=== PATIENT | female | born 2000 | race Hispanic/Latino ===

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

== ENCOUNTER 2018-01-22 06:40 | Outpatient (CLI) | payer MEDICAID | END 2018-01-22 06:41 | disposition home or self-care (01) | LOC: BICULT 06:40 | PROVIDERS: ATTEND Nurse Practitioner Women's Health | DX: R10.2 Pelvic and perineal pain (principal); R10.30 Lower abdominal pain, unspecified | CPT/HCPCS: 76856 ==

== ENCOUNTER 2018-01-23 16:00 | Emergency (ER) | payer MEDICAID, SELFPAY ==
[2018-01-23 17:02] LABS: #Basophils 0.1 thou/uL (0.0-0.2); #Eosinphils 0.3 thou/uL (0.0-0.7); #Lymphocytes 1.7 thou/uL (1.20-3.40); #Monocytes 0.9 thou/uL (0.11-0.59); #Neutrophils 5.7 thou/uL (1.40-6.50); %Basophils 1.2 % (0.0-1.0); %Eosinophils 3.6 % (0.0-10.0); %Lymphocytes 19.8 % (28.0-48.0); %Monocytes 10.6 % (0.0-4.0); %Neutrophils 64.9 % (31.0-61.0); Hemoglobin 12.8 g/dL (12.0-16.0); Mean Corpuscular HGB CONC 33.8 g/dL (32.0-36.0); Mean Corpuscular Hemoglobin 27.2 pg (25.0-35.0); Mean Corpuscular Volume 80.3 fL (78.0-98.0); Mean Platelet Volume 8.8 fL (7.4-10.4); Platelet Count 263 thou/uL (130-400); White Blood Cell (WBC) Count 8.7 thou/uL (4.8-10.8)
[2018-01-23 17:05] LABS: Bilirubin Negative (Negative); Blood, Urine Small (Negative); Clarity CLOUDY (Clear); Glucose, Urine (Dipstick) Negative (Negative); Leukocyte Small (Negative); Nitrite Negative (Negative); Protein, Urine (Dipstick) Negative (Neg-Trace); Specific Gravity, Urine 1.019 (1.002-1.036); pH, Urine 7.5 (5.0-9.0)
[2018-01-23 17:07] LABS: Bacteria/HPF None Seen HPF (None Seen); Hyaline Casts/LPF 0-3 HYALINE CAST LPF (0-3 Hyaline); Pregnancy Test - Urine (BHCG) Negative (Negative); Pregu Control Background? CLEAR/WHITE (CLR/WHITE); Pregu Control Bar Appear? YES (CONTROL BAR); Specific Gravity 1.019 (1.002-1.036); Squamous Epithelial 0-3 HPF (0-3); WBC/HPF 0-3 HPF (0-3)
[2018-01-23 17:23] LABS: ALT (SGPT) 19 U/L (8-55); AST (SGOT) 18 U/L (5-30); Albumin 3.8 g/dL (3.5-5.0); Alkaline Phosphatase 74 U/L (40-150); Anion Gap 12 mmol/L (10-20); BUN (Urea Nitrogen) 7 mg/dL (8.4-21.0); Bilirubin, Total 0.4 mg/dL (0.2-1.2); Calc. Creatinine Clearance 0 mL/min (70-130); Calcium 8.7 mg/dL (7.8-10.44); Carbon Dioxide 21 mmol/L (22-29); Chloride 108 mmol/L (98-107); Estimated GFR-MDRD Greater than 90; Globulin 3.2 g/dL (2.4-3.5); Glucose 102 mg/dL (70-105); Lipase 17 U/L (8-78); Potassium 3.5 mmol/L (3.5-5.1); Sodium 137 mmol/L (136-145)
--- NOTE | 2018-01-23 17:32 | RAD ---
AP VIEW OF THE CHEST: 01/23/18 INDICATION: History of difficulty breathing. IMPRESSION: No acute cardiopulmonary abnormality. The examination is not appreciably changed from a comparison da emelia 01/25/17. POS: [facility]
--- NOTE | 2018-01-23 18:38 | ULT ---
ULTRASOUND PELVIC ULTRASOUND TRANSVAGINAL DOPPLER DUPLEX: 01/23/18 HISTORY: 17-year-old female with pelvic pain for three weeks. Rule out ovarian torsion. TECHNIQUE: Transabdominal transducer used to evaluate intrapelvic contents using the urinary bladder as an acous tic window. Endovaginal transducer used to visualize intrapelvic contents in greater detail. Color fl ow Doppler and Pulsed Doppler spectral waveform analysis of ovaries. FINDINGS: Uterus: Retroverted. 5 x 3.5 x 4.5 cm. Endometrial stripe: 0.3 cm (3 mm). Free fluid in the cul-de-sac: None. Right ovary: 3.5 x 1.5 x 1.5 cm. Left ovary: 3.5 x 2.5 x 2.5 cm. Multiple follicles in the left ovary. No ovarian cyst (defined as 2 cm or larger). Blood flow demonstrated in both ovaries by doppler. IMPRESSION: Negative. BRIGETTE Ramos POS: [facility]
[2018-01-26 13:19] LABS: Chlamydia by PCR Not Detected (NotDetected); GC by PCR Not Detected (NotDetected)
== END 2018-01-23 19:53 | disposition home or self-care (01) ==
LOC: ERS 16:00
DX: R10.30 Lower abdominal pain, unspecified (principal)
CPT/HCPCS: 36415; 71045; 76856; 80053; 81003; 81015; 81025; 83690; 85025; 87480; 87491; 87510; 87591; 87660; 93005

== ENCOUNTER 2018-03-06 00:23 | Emergency (ER) | payer MEDICAID, SELFPAY ==
[2018-03-06 00:48] LABS: Bilirubin Negative (Negative); Blood, Urine Moderate (Negative); Clarity Turbid (Clear); Glucose, Urine (Dipstick) Negative (Negative); Leukocyte Trace (Negative); Nitrite Negative (Negative); Protein, Urine (Dipstick) Trace mg/dL (Neg-Trace); Specific Gravity, Urine 1.015 (1.005-1.030); Urobilinogen 0.2 mg/dL (0.2-1.0); pH, Urine 8.5 (5.0-9.0)
[2018-03-06 00:49] LABS: Pregnancy Test - Urine (BHCG) Negative (Negative); Pregu Control Background? CLEAR/WHITE (CLR/WHITE); Pregu Control Bar Appear? YES (CONTROL BAR); Specific Gravity 1.015 (1.002-1.036)
[2018-03-06 00:51] LABS: #Basophils 0.2 thou/uL (0.0-0.2); #Eosinphils 0.2 thou/uL (0.0-0.7); #Lymphocytes 2.9 thou/uL (1.20-3.40); #Neutrophils 6.1 thou/uL (1.40-6.50); %Basophils 1.7 % (0.0-1.0); %Eosinophils 1.5 % (0.0-10.0); %Lymphocytes 28.4 % (28.0-48.0); %Monocytes 9.4 % (0.0-4.0); Hemoglobin 13.4 g/dL (12.0-16.0); Mean Corpuscular HGB CONC 32.2 g/dL (32.0-36.0); Mean Corpuscular Hemoglobin 25.3 pg (25.0-35.0); Mean Corpuscular Volume 78.6 fL (78.0-98.0); Mean Platelet Volume 8.7 fL (7.4-10.4); Platelet Count 319 thou/uL (130-400); RBC Distribution Width 12.8 % (11.5-14.5); Red Blood Cell (RBC) Count 5.28 mill/uL (4.00-5.20); White Blood Cell (WBC) Count 10.3 thou/uL (4.8-10.8)
[2018-03-06 01:00] LABS: Bacteria/HPF Rare-Few HPF (None Seen); Hyaline Casts/LPF NONE SEEN LPF (0-3 Hyaline)
[2018-03-06 01:03] LABS: ALT (SGPT) 14 U/L (8-55); AST (SGOT) 14 U/L (5-34); Albumin 4.2 g/dL (3.5-5.0); Alkaline Phosphatase 83 U/L (40-150); Anion Gap 14 mmol/L (10-20); BUN (Urea Nitrogen) 6 mg/dL (7.0-18.7); Bilirubin, Total 0.3 mg/dL (0.2-1.2); Calc. Creatinine Clearance 0 mL/min (70-130); Calcium 9.3 mg/dL (7.8-10.44); Carbon Dioxide 21 mmol/L (22-29); Chloride 107 mmol/L (98-107); Estimated GFR-MDRD Greater than 90; Glucose 94 mg/dL (70-105); Potassium 4.1 mmol/L (3.5-5.1); Protein, Total 8.2 g/dL (6.0-8.3); Sodium 138 mmol/L (136-145)
[2018-03-06] MEDS ORDERED: Ketorolac Tromethamine 30 MG/ML VIAL ONE (01:09)
== END 2018-03-06 01:45 | disposition home or self-care (01) ==
LOC: SCSER 00:23
DX: N93.8 Other specified abnormal uterine and vaginal bleeding (principal)
CPT/HCPCS: 80053; 81003; 81015; 81025; 85025; 96374; J1885

== ENCOUNTER 2018-04-30 17:39 | Emergency (ER) | payer MEDICAID, SELFPAY ==
[2018-04-30] MEDS ORDERED: Lorazepam 1 MG TAB ONE (18:01)
--- NOTE | 2018-04-30 19:39 | RAD ---
PA AND LATERAL CHEST X-RAY 04/30/18 HISTORY: Hypertension, chest pain. COMPARISON: 01/23/18. FINDINGS: The cardiac silhouette and pulmonary vasculature are within normal limits. The lungs remain clear. Th ere has been no interval change from prior study. IMPRESSION: No acute cardiopulmonary process. POS: [facility]
== END 2018-04-30 18:39 | disposition home or self-care (01) ==
LOC: ERS 17:39
DX: F41.9 Anxiety disorder, unspecified (principal)
CPT/HCPCS: 71046; 93005

== ENCOUNTER 2018-07-13 09:16 | Outpatient (CLI) | payer MEDICAID ==
--- NOTE | 2018-07-13 10:38 | ULT ---
RIGHT BREAST ULTRASOUND: HISTORY: Palpable mass at the 10 o'clock position of the right breast. This mass is raised and she tried to pop it without success. TECHNIQUE: Multiplanar, reaglado scale, and color Doppler images were obtained in a limited ultrasound of the right breast/chest wall. FINDINGS: At the 10 o'clock position of the right breast at the area of pain and palpable abnormality, there is a fluid collection measuring 2.0 x 1.3 x 1.8 cm in size. This is just beneath the dermis. No flow was seen within the fluid collection which likely represents a small abscess. IMPRESSION: There is a small focal abscess in the 10 o'clock position of the right breast in the area of redness and palpable concern. Recommend treatment as appropriate with antibiotics and drainage. BI-RADS cat egory 2 - benign findings. Annual screening mammography is recommended at the age of 40. POS: [facility]
== END 2018-07-13 09:17 | disposition home or self-care (01) ==
LOC: BICULT 09:16 → EDSTATUS 10:00
PROVIDERS: ATTEND Advanced Practice Midwife
DX: N63.11 Unspecified lump in the right breast, upper outer quadrant (principal)

== ENCOUNTER 2022-04-14 04:38 | Emergency (ER) | payer SELFPAY ==
[2022-04-14] MEDS ORDERED: Ketorolac Tromethamine 30 MG/ML VIAL ONE (05:12)
== END 2022-04-14 05:24 | disposition home or self-care (01) ==
LOC: ERS 04:38
DX: K08.89 Other specified disorders of teeth and supporting structures (principal)
CPT/HCPCS: 96372; 99282; J1885